=== PATIENT | female | born 1965 | race Caucasian/White ===

== ENCOUNTER 2020-12-06 21:55 | Emergency (ER) | payer BC ==
[2020-12-06] MEDS ORDERED: HYDROmorphone 1 MG/ML Syringe IM ONE (22:36)
--- NOTE | 2020-12-06 22:39 | EDM.PDOC ---
ED HPI GENERAL MEDICAL PROBLEM - General Chief Complaint: Back Pain or Injury Stated Complaint: SLIPPED AND FELL , LANDED ON BACK Time Seen by Provider: 12/06/20 22:20 Source of Information: Reports: Patient, Family History Limitations: Reports: No Limitations - History of Present Illness INITIAL COMMENTS - FREE TEXT/NARRATIVE: 55-year-old female was in her usual good state of health when she slipped 1-1/2 hours ago, falling backwards and landing extremely hard on her right flank and right back onto a hard drain spout and concrete. She initially got the wind knocked out of her, and now has severe pain in the right posterior chest and back, feels things "moving" and has painful breathing and moving. She is not short of breath, there is no bruising, she has no abdominal pain or lower back pain. Denies neck or head injury. Onset: Sudden Duration: Hour(s): (Just less than 2 hours ago) Location: Reports: Chest (Right side), Back Improves with: Reports: Rest Worsens with: Reports: Breathing, Movement Associated Symptoms: Reports: No Other Symptoms Back Pain Score (Numeric/FACES): 10 - Related Data Allergies Allergy/AdvReac Type Severity Reaction Status Date / Time No Known Allergies Allergy Verified 12/06/20 22:14 Home Meds: Home Meds Cyanocobalamin (Vitamin B-12) [Vitamin B-12] 1 tab PO DAILY 12/06/20 [History] Multivitamin [Multi-Vitamin Daily] 1 tab PO DAILY 12/06/20 [History] lisinopriL [Prinivil] 1 tab PO DAILY 12/06/20 [History] Past Medical History Cardiovascular History: Reports: Hypertension Genitourinary History: Reports: Renal Calculus [employer] History: Reports: - Infectious Disease History Infectious Disease History: Reports: Chicken Pox - Past Surgical History HEENT Surgical History: Reports: Tonsillectomy GI Surgical History: Reports: Bariatric Procedure, Hernia, Abdominal Female Surgical History: Reports: Section, Hysterectomy Social & Family History - Family History Family Medical History: No Pertinent Family History - Tobacco Use Tobacco Use Status *Q: Current Every Day Tobacco User Years of Tobacco use: 10 Packs/Tins Daily: 0.2 - Caffeine Use Caffeine Use: Reports: Coffee - Recreational Drug Use Recreational Drug Use: No ED ROS GENERAL - Review of Systems Review Of Systems: See Below Constitutional: Denies: Fever, Chills HEENT: Reports: No Symptoms Respiratory: Reports: Pleuritic Chest Pain. Denies: Shortness of Breath Cardiovascular: Denies: Chest Pain GI/Abdominal: Denies: Abdominal Pain, Nausea, Vomiting Musculoskeletal: Reports: Back Pain Skin: Reports: No Symptoms. Denies: Bruising Neurological: Denies: Dizziness, Headache, Paresthesia, Difficulty Walking Psychiatric: Reports: No Symptoms ED EXAM, GENERAL - Physical Exam Exam: See Below Exam Limited By: No Limitations General Appearance: Alert, Mild Distress (Very uncomfortable with any motion of the upper body) Eye Exam: Bilateral Eye: Normal Inspection Head: Atraumatic Neck: Supple, Non-Tender Respiratory/Chest: No Respiratory Distress, Lungs Clear Cardiovascular: Regular Rate, Rhythm GI/Abdominal: Non-Tender Back Exam: Vertebral Tenderness (Vertebral tenderness in the mid back, especially on the right side. Some increased pain with lateral compression of the chest wall) Extremities: Normal Inspection Neurological: Alert, Oriented Psychiatric: Normal Affect, Normal Mood Skin Exam: Warm, Dry Course - Vital Signs Last Recorded V/S: Last Vital Signs Temp 97.3 F 12/06/20 22:16 Pulse 97 12/06/20 22:16 Resp 18 12/06/20 22:16 BP 163/103 H 12/06/20 22:16 Pulse Ox 99 12/06/20 22:16 - Orders/Labs/Meds Meds: Medications Discontinued Medications Generic Name Dose Route Start Last Admin Trade Name Freq PRN Reason Stop Dose Admin Hydromorphone HCl 1 mg 12/06/20 22:36 12/06/20 22:47 Hydromorphone 1 Mg/Ml Syringe IM 12/06/20 22:37 1 mg ONETIME ONE Administration - Re-Assessments/Exams Free Text/Narrative Re-Assessment/Exam: 12/07/20 00:03 IMPRESSION: 1. Mildly displaced right posteromedial 7th through 9th rib fractures. Nondisplaced right posterior 10th rib fracture. 2. Small pulmonary contusions in the posterior right lower lobe. Trace dependent right pleural hematoma. 3. Nondisplaced right T7-T9 transverse process fractures. 12/07/20 02:13 Patient was given 1 mg of IM Dilaudid prior to the above CT scan. Results were discussed with the patient, she wanted to try to treat the pain as an outpatient. She was discharged with 20 Percocet to use 1-2 every 4-6 hours for pain along with anti-inflammatories. Increase activity as tolerated and return anytime if worsening such as increasing shortness of breath or uncontrolled pain. Departure - Departure Time of Disposition: 00:38 Disposition: Home, Self-Care 01 Clinical Impression: Fracture of transverse process of vertebra Multiple fractures of ribs Qualifiers: Encounter type: initial encounter Fracture type: closed Laterality: right Qualified Code(s): S22.41XA - Multiple fractures of ribs, right side, initial encounter for closed fracture - Discharge Information Instructions: Rib Fracture, [id number] Referrals: Noa Dallas MD [Primary Care Provider] - Forms: ED Department Discharge Care Plan Goals: Increase activity as tolerated, a regular dose of ibuprofen or naproxen would be helpful and add stronger pain medications as directed if needed. Recheck at any time if you are worsening such as difficulty breathing or fever. Otherwise consider rechecking in 7 to 10 days if not improving satisfactorily. Sepsis Event Note (ED) - Evaluation Sepsis Screening Result: No Definite Risk - Focused Exam Vital Signs: Vital Signs Temp Pulse Resp BP Pulse Ox 12/06/20 22:16 97.3 F 97 18 163/103 H 99 12/06/20 22:10 97.3 F 97 18 163/103 H 99
--- NOTE | 2020-12-06 23:28 | CRLCT ---
For Patients: As a result of the Cures Act, medical imaging exams and procedure reports are released immediately into your electronic medical record. You may view this report before your referring provider. If you have questions, please contact your health care provider. INDICATION: Trauma, fall. Right posterior chest pain. TECHNIQUE: CT chest without IV contrast. COMPARISON: None. FINDINGS: Lungs and pleura: Few hazy ground-glass subpleural opacities in the right lower lobe, likely reflective of small pulmonary contusions. Trace dependent right pleural hematoma. Heart and vasculature: No cardiomegaly, no pericardial effusion. Thyroid and lower neck: No suspicious thyroid nodule. Mediastinum/rina: No lymphadenopathy. Chest wall: No axillary lymphadenopathy. Upper abdomen: Perigastric postsurgical changes. No acute abnormality. Bones: Mildly displaced right posteromedial 7th through 9th rib fractures. Nondisplaced right posterior 10th rib fracture. Nondisplaced right T7-T9 transverse process fractures. IMPRESSION: 1. Mildly displaced right posteromedial 7th through 9th rib fractures. Nondisplaced right posterior 10th rib fracture. 2. Small pulmonary contusions in the posterior right lower lobe. Trace dependent right pleural hematoma. 3. Nondisplaced right T7-T9 transverse process fractures. Please note that all CT scans at this facility use dose modulation, iterative reconstruction, and/or weight-based dosing when appropriate to reduce radiation dose to as low as reasonably achievable. Dictated by Mike Ruiz MD @ 12/06/2020 11:26:57 PM (Electronically Signed)
== END 2020-12-07 00:39 | disposition home or self-care (01) ==
LOC: JP.ED 21:55
DX: S22.41XA Multiple fractures of ribs, right side, initial encounter for closed fracture (principal); S22.061A Stable burst fracture of T7-T8 vertebra, initial encounter for closed fracture; S22.071A Stable burst fracture of T9-T10 vertebra, initial encounter for closed fracture; I10 Essential (primary) hypertension; Z72.0 Tobacco use; Z79.899 Other long term (current) drug therapy; W01.0XXA Fall on same level from slipping, tripping and stumbling without subsequent striking against object, initial encounter; Y92.009 Unspecified place in unspecified non-institutional (private) residence as the place of occurrence of the external cause
CPT/HCPCS: 71250; 96372; 99283; J1170